=== PATIENT | male | born 1970 | race Caucasian/White ===

== ENCOUNTER 2025-08-07 09:50 | Emergency (ER) | payer OTHER ==
[~2025-08-07] VITALS: Ht 167.6 cm; Wt 77.1 kg
[2025-08-07 09:55] VITALS: BP 142/91
[2025-08-07] MEDS ORDERED: HYDR-3972 PO (10:38)
[2025-08-07 11:01] VITALS: BP 142/91; TEMP 97.8; O2SAT 99
== END 2025-08-07 11:02 | disposition home or self-care (01) ==
LOC: ER 09:50
DX: S52.532A Colles' fracture of left radius, initial encounter for closed fracture (principal); M19.032 Primary osteoarthritis, left wrist; W18.39XA Other fall on same level, initial encounter; Y93.89 Activity, other specified; Y92.89 Other specified places as the place of occurrence of the external cause; Y99.9 Unspecified external cause status
CPT/HCPCS: 73090; 73110; A4606; A4663